=== PATIENT | female | born 1940 | race Caucasian/White ===

== ENCOUNTER 2021-05-11 12:02 | Outpatient (CLI) | payer MEDICARE, OTHER, SELFPAY ==
--- NOTE | 2021-05-11 | ECG_ITS ---
Measurements Intervals [place] Rate: 77 P: 25 PA: 170 QRS: -19 QRSD: 94 T: 4 QT: 361 QTc: 409 Interpretive Statements SINUS RHYTHM VOLTAGE CRITERIA FOR LVH BORDERLINE R WAVE PROGRESSION, ANTERIOR LEADS BORDERLINE T WAVE ABNORMALITY- INFERIOR LEADS BASELINE ARTIFACT- I, II, III, AVR, AVL, AVF BORDERLINE ECG Electronically Signed On 05-11-2021 13:57:48 CDT by Eric England D.O.
[2021-05-11 13:10] LABS: Albumin Level 4.4 g/dL (3.5-5.1); Estimated Glomerular Filt Rate 36
== END 2021-05-11 12:03 | disposition home or self-care (01) ==
PROVIDERS: PCP Internal Medicine; Visit Provider Orthopaedic Surgery
DX: Z01.818 Encounter for other preprocedural examination (principal); M16.12 Unilateral primary osteoarthritis, left hip
CPT/HCPCS: 36415; 82040; 82565; 93005

== ENCOUNTER 2021-05-17 14:17 | Outpatient (CLI) | payer MEDICARE, OTHER, SELFPAY ==
--- NOTE | ~2021-05-17 | CT_ITS ---
EXAMINATION: CT shoulder RT wo con DATE: 05/17/2021 15:53 INDICATION: Displaced fracture of the glenoid cavity and neck of the scapula. TECHNIQUE: High resolution computed tomography (CT) of the right shoulder was performed without intra venous contrast. Additional sagittal and coronal reconstructions were performed. Automated exposure c ontrol and iterative reconstruction technique were employed. The dose-length product was 475.97 mGy-c m. COMPARISON: Right shoulder radiographs dated 05/11/2021 FINDINGS: Osseous Bankart fracture involving the 3:00-7:00 position of the anteroinferior glenoid. The main fra cture fragment measures 2.4 cm in anterosuperior to posterior inferior length and 5 mm in maximal pos terior superior to anteroinferior. The anterosuperior margin of the fracture is displaced 7 mm anteri loni and 8 mm medially with similar fracture gap and incongruity at the articular surface. There are couple additional tiny displaced fragments positioned in a fluid collection deep to the short head of the biceps tendon most likely the subcoracoid recess. No other fractures identified. Mild glenohumeral osteoarthritis as described by mild anterior predominant nonuniform joint space martha rowing and tiny marginal osteophytes about both the glenoid and femoral head. Moderate-sized glenohum eral joint effusion. Small erosion with corticated margins versus old suture anchor tracks along the floor of the intertubercular groove suggesting prior bicipital tenodesis. Mild to moderate acromiocla vicular osteoarthritis. There is additional moderate amount of fluid in the subacromial/subdeltoid bu rsa. Discoid atelectasis in the right middle lobe. No pathologically enlarged lymphadenopathy at the right axilla, right hilum or visualized right side of the mediastinum severe thoracic spondylosis. IMPRESSION: 1. Displaced Bankart fracture of the anteroinferior glenoid as detailed above. 2. Mild glenohumeral and mild to moderate acromioclavicular osteoarthritis. 3. Moderate amount of fluid in the subacromial/subdeltoid bursa which could be related to either burs itis or extension of fluid from the moderate-sized glenohumeral joint effusion through a full-thickne ss rotator cuff tear. Rotator cuff tear is however not diagnostically evaluated on CT and could consi jud MRI for further evaluation as clinically indicated. Reviewed, dictated and finalized at location A. IMPRESSION: 1. Displaced Bankart fracture of the anteroinferior glenoid as detailed above. 2. Mild glenohumeral and mild to moderate acromioclavicular osteoarthritis. 3. Moderate amount of fluid in the subacromial/subdeltoid bursa which could be related to either bursitis or extension of fluid from the moderate-sized glenoh umeral joint effusion through a full-thickness rotator cuff tear. Rotator cuff tear is however not diagnostically evaluated on CT and could consider MRI for f urther evaluation as clinically indicated.
== END 2021-05-17 14:18 | disposition home or self-care (01) ==
LOC: ANHIMG 14:19
PROVIDERS: PCP Internal Medicine; Visit Provider Orthopaedic Surgery
DX: S42.141A Displaced fracture of glenoid cavity of scapula, right shoulder, initial encounter for closed fracture (principal); S42.451A Displaced fracture of lateral condyle of right humerus, initial encounter for closed fracture
CPT/HCPCS: 73200

== ENCOUNTER 2022-01-22 13:41 | Outpatient (CLI) | payer MEDICARE, OTHER, SELFPAY ==
--- NOTE | 2022-01-22 14:11 | ECG_ITS ---
Measurements Intervals [place] Rate: 87 P: 35 AR: 176 QRS: -26 QRSD: 97 T: 4 QT: 358 QTc: 431 Interpretive Statements SINUS RHYTHM LEFT VENTRICULAR HYPERTROPHY CANNOT RULE OUT SEPTAL INFARCT, AGE INDETERMINATE BORDERLINE ST-T WAVE ABNORMALITY- INFERIOR LEADS BASELINE ARTIFACT- I, II, III, AVR, AVL, AVF ABNORMAL ECG Electronically Signed On 01-22-2022 17:04:38 GLUE MILL OPERATOR by Eric England D.O.
[2022-01-22 14:23] LABS: Albumin Level 4.5 g/dL (3.5-5.1); Estimated Glomerular Filt Rate 60
== END 2022-01-22 13:42 | disposition home or self-care (01) ==
PROVIDERS: PCP Internal Medicine; Visit Provider Orthopaedic Surgery
DX: Z01.818 Encounter for other preprocedural examination (principal); M16.12 Unilateral primary osteoarthritis, left hip; I51.7 Cardiomegaly
CPT/HCPCS: 36415; 82040; 82565; 93005

== ENCOUNTER 2022-02-28 13:40 | Outpatient (CLI) | payer MEDICARE, OTHER, SELFPAY ==
[2022-02-28 16:03] LABS: Basophils Absolute Auto 0.1 K/mm3 (0.0-0.1); Basophils Percent Auto 0.7 % (0.2-1.2); Eosinophils Absolute Auto 0.1 K/mm3 (0-0.3); Eosinophils Percent Auto 1.4 % (0-4.4); Hematocrit 40.2 % (37.0-47.0); Hemoglobin 12.9 g/dL (12.0-15.0); Immature Granulocyte Absolute 0.02 K/mm3 (0.00-0.031); Immature Granulocyte Percent A 0.3 % (0-0.5); Lymphocytes Absolute Auto 2.01 K/mm3 (0.9-3.2); Lymphocytes Percent Auto 27.6 % (18.3-44.2); Mean Corpuscular HGB Conc 32.1 g/dl (32-36); Mean Corpuscular Hemoglobin 32.3 pg (26-34); Mean Corpuscular Volume 100.8 fl (80-100); Monocytes Absolute Auto 0.6 K/mm3 (0.1-0.6); Neutrophils Absolute Auto 4.5 K/mm3 (1.3-6.7); Platelet Count Result 307 k/mm3 (150-375); Red Blood Count 3.99 M/mm3 (4.2-5.4); Red Cell Distribution Width 12.5 % (11.5-14.5); White Blood Count 7.3 K/mm3 (4.5-10.0)
[2022-02-28 16:11] LABS: Albumin Level 4.6 g/dL (3.5-5.1); Urine Cotinine NEGATIVE
[2022-02-28 16:13] LABS: Anion Gap 9 mmol/L (8-16); Blood Urea Nitrogen 15 mg/dL (7-17); Carbon Dioxide 25 mmol/L (22-30); Chloride 106 mmol/L (98-107); Estimated Glomerular Filt Rate 53; Glucose 89 mg/dL (65-110); Potassium 4.6 mmol/L (3.4-5.0); Sodium 140 mmol/L (137-145)
[2022-02-28 16:56] LABS: Hemoglobin A1C 5.2 % (<5.7)
== END 2022-02-28 13:41 | disposition home or self-care (01) ==
LOC: ANHSURGERY 13:45
PROVIDERS: Anesthesiology; PCP Internal Medicine; Visit Provider Orthopaedic Surgery
DX: Z01.812 Encounter for preprocedural laboratory examination (principal); M16.12 Unilateral primary osteoarthritis, left hip; Z51.81 Encounter for therapeutic drug level monitoring; Z79.899 Other long term (current) drug therapy
CPT/HCPCS: 80048; 80307; 82040; 83036; 85025; 87081

== ENCOUNTER 2022-03-30 16:24 | Observation (INO) | payer MEDICARE, OTHER, SELFPAY ==
[2022-02-28 14:06] VITALS: BP 158/84; PULSE 85; RESP 16; TEMP 36.7; O2SAT 99; BMI 30.4
--- NOTE | 2022-02-28 14:30 | PC.NURSE ---
Addendum entered by Sasha Olmedo RN 02/28/22 14:54: PATIENT GOING TO DR RUBIO'S OFFICE AFTER THIS VISIT, WILL CHECK OF XERALTO HOLD. PT RELAYS UNDERSTANDING. Original Note: Report to the Outpatient Waiting Room, entrance under the green pavilion located off [facility], at time __6:00AM on date _03/29/22 . OR Time: __7:30AM . - You and your visitor will be asked a series of questions to screen for COVID 19 for your protection. - A mask is required within the hospital. Preoperative COVID Testing Requirements: No COVID Test needed if: (proof is required; if not received patient will have Rapid Test prior to entry) - Patient has received COVID Vaccine at least 14 days prior to procedure date or - Patient has positive COVID test result within last 90 days of surgery date. COVID Test needed if above criteria is not met If not COVID vaccinated a COVID test must be conducted within 72 hours of surgery and patient is asked to isolate self from time of testing until procedure. You will go to the [employer] [facility] [facility] for your COVID testing. The [employer] [facility] site is located at the corner of [address] [facility]. You will only be called if COVID results are positive and your surgeon may reschedule your elective surgery date. Patients may have clear liquids (water, carbonated beverages, clear teas, apple juice) until 3 hours prior to surgery with a maximum of 20 ounces. - No food from midnight until time of surgery - Infants may have breast milk until 4 hours before surgery, infant formula 6 hours prior to surgery. - Children will be allowed to drink immediately following surgery. If applicable, please bring a bottle or sippy cup to assist with drinking. Juice, water, soda, and popsicles are readily available. For infants on formula, please bring formula the day of surgery. Pacifiers are allowed. Take the following medications with a SIP of water the morning of surgery: ____NONE Medications to discontinue per physician __ _HOLD ALL VITAMINS/SUPPLEMENTS 3 DAYS PRE-OP, LAST DOSE 03/25/22. HOLD XERALTO PER DR RUBIO. _ Please no make-up, nail kiswahili, hairspray, perfume, deodorant, or body powder the day of surgery. No jewelry (including any body piercings) or valuables the day of surgery, leave them at home. Please take a shower or bath the night before, or the morning of, surgery with an antibacterial soap. Wear comfortable, loose fitting clothing. Children are encouraged to wear pajamas. - Jewelry must be removed prior to entering the operating room. Rings and piercings that are not removed may be cut off. - The hospital will not accept responsibility for valuables. - Please leave all valuables, including medications, at home the day of surgery. If you are going home after surgery, a licensed stacker driver must drive you home. - NO public transportation without another adult. - We recommend that an adult stay with you for 24 hours following discharge. - We also recommend that you do not drive, make important decision, drink alcoholic beverages, or take any drugs that were not prescribed by your health care provider for at least 24 hours after your discharge time. For Pediatric surgeries, we recommend two adults accompany the child home (only one inside the building at this time). One visitor will be allowed to accompany the patient into the hospital. Patients visitor will be instructed to remain with patient at all times or leave the building. We will allow the visitor to come back to the postoperative area when patient is ready. Follow any additional instructions given to you from your surgeon. Telephone instructions given to __PATIENT and asked if any additional questions and then verbalized understanding. Patient advised to call surgeon office or pre surgery nurse liaison [phone] if any additio
--- NOTE | 2022-03-28 12:51 | WPDANESEPPF ---
Anes - Initial Pre Proc Eval Procedure: Operation Date: 03/29/22 07:30 Proposed Procedures p Left Total Hip Arthroplasty - Layton Grace MD Date/Time: 03/28/22 12:51 Surgeon: Layton Grace MD Pre Op Diagnosis: primary OA left hip Patient Data Age: 81 Gender: F Height: 1.6 m Weight: 78.1 kg Last Vital Signs Temp 36.7 C 02/28/22 14:06 Pulse 85 02/28/22 14:06 Resp 16 02/28/22 14:06 BP 158/84 H 02/28/22 14:06 Pulse Ox 99 02/28/22 14:06 Allergies Allergy/AdvReac Type Severity Reaction Status Date / Time morphine AdvReac Intermediate BRADYCARDIA Verified 03/29/22 06:14 Home Medications Medication Instructions Recorded Confirmed Type rivaroxaban 20 mg tablet 20 mg PO QAM 04/06/21 03/29/22 History simvastatin 20 mg tablet 20 mg PO HS 04/06/21 03/29/22 History acetaminophen 1,000 mg PO Q6H PRN 02/28/22 03/29/22 History calcium carbonate [Caltrate 600] 600 mg PO DAILY 02/28/22 03/29/22 History coenzyme Q10 [Co Q-10] 200 mg PO DAILY 02/28/22 03/29/22 History esomeprazole magnesium [Nexium] 20 mg PO QAM 02/28/22 03/29/22 History famotidine [Pepcid] 20 mg PO HS 02/28/22 03/29/22 History furosemide 20 mg PO 2XW 02/28/22 03/29/22 History loratadine [Claritin] 10 mg PO DAILY 02/28/22 03/29/22 History hugxznlptozx-vfkokpsv-zxqiba 1 tablet PO DAILY 02/28/22 03/29/22 History [Centrum Silver] rivaroxaban 10 mg tablet 10 mg PO DAILY #14 tablet 02/28/22 03/29/22 Rx ECG: Date of Service: 01/22/22 Procedure(s): CA 12 lead EKG Accession Number(s): [id number] cc: ~ Measurements Intervals [place] Rate: 87 P: 35 VA: 176 QRS: -26 QRSD: 97 T: 4 QT: 358 QTc: 431 Interpretive Statements SINUS RHYTHM LEFT VENTRICULAR HYPERTROPHY CANNOT RULE OUT SEPTAL INFARCT, AGE INDETERMINATE BORDERLINE ST-T WAVE ABNORMALITY- INFERIOR LEADS BASELINE ARTIFACT- I, II, III, AVR, AVL, AVF ABNORMAL ECG Electronically Signed On 01-22-2022 17:04:38 PLASTICS WORKER by Eric England D.O. Patient hx anesthesia problems: none Family hx anesthesia problems: none Results Review: All pre-operative results and documents have been reviewed as part of the pre-operative evaluation. [facility] Past Medical History Medical History (Updated 03/28/22 @ 12:53 by Conner Flores MD) Acid reflux DVT (deep venous thrombosis) HTN (hypertension) Hyperlipidemia Primary osteoarthritis of left hip VSD (ventricular septal defect) Surgical History Surgical History H/O: hysterectomy (~2012) History of knee replacement procedure of left knee (~2006) History of knee surgery (~12/22/13) knee condyle and manipulation Social History Social History Smoking packs per day: 1 Smoking cigarettes per day: 20.0 Years smoked: 20 Smoking pack-years: 20.00 Smoking status: Former smoker Tobacco type: cigarettes Smoking end date: 06/01/01 Alcohol intake: current Substance use: never Living arrangements: with family Additional living arrangements comments: [facility] Spiritual care concerns: No Anes - Eval Final PreProcedure Day of Procedure 03/28/22 12:51 Patient weight: obese Heart: regular rate and rhythm Lungs: clear to auscultation and normal air movement Airway: Mallampati scale class II Neurological: alert and oriented Last oral intake: >/= 8 hours ASA classification: III Emergent: no Anesthetic plan: proceed Anesthesia type and monitoring: general ETT Results Review: All pre-operative results and documents have been reviewed as part of the pre-operative evaluation. Informed Consent: The patient's anesth
[2022-03-29] VITALS (14 sets, daily range): BP systolic 107–166; BP diastolic 56–83; PULSE 53–97; RESP 12–20; TEMP 36.1–36.5; O2SAT 96–100
[2022-03-29] MEDS: LACTATED RINGERS 1,000 ML 30 ML IV CONT ×3 (06:35→10:44)
[2022-03-29] MEDS: TRANEXAMIC ACID 1,000MG/ISO100 1,000 MG/100 ML BAG 200 MG IVPB (06:35)
[2022-03-29] MEDS: ACETAMINOPHEN 500 MG TABLET 1000 MG PO (06:37)
--- NOTE | 2022-03-29 07:26 | WPDHPUPDATE1 ---
History and Physical Update Update Date/Time: 03/29/22 07:26 History and Physical has been reviewed, including an updated exam of the patient. There are NO changes in the patient's condition. Risks, benefits, and alternatives have been discussed and questions answered. Patient agrees to proceed with procedure.
[2022-03-29] MEDS: ceFAZolin 2 GM/D5W 50 ML 2 GM/50 ML BAG IVPB ×3 (07:32→22:35)
[2022-03-29] MEDS: fentaNYL CITRATE INJ (*CRX) 100 MCG/2 ML VIAL 25 MCG IV PUSH ×12 (10:20→11:21)
--- NOTE | 2022-03-29 12:03 | PC.NURSE ---
This patient, Sherry Elmore, was admitted to Medical Room 244-. Patient/family oriented to hospital policies and general routines including ID bracelet, bed and alarms, visiting hours, pain management, procedures, bathroom and other care routines, personal items, smoking policy, room service/diet, and visiting hours. Information on how to activate the Rapid Response Team has been discussed. Patient/Family are encouraged to report perceived risks to care and to ask questions if they do not understand what they are told or what they should do.
[2022-03-29] MEDS: oxyCODONE HCL (*CRX) 5 MG TAB IR PO ×2 (13:05→22:35)
[2022-03-29] MEDS: SODIUM CHLORIDE 0.9% IV 1,000 ML 125 ML IV CONT (13:05)
[2022-03-29] MEDS: FUROSEMIDE 20 MG TABLET PO (13:39)
[2022-03-29] MEDS: SENNA/DOCUSATE SODIUM TABLET 2 TAB PO (16:59)
--- NOTE | 2022-03-29 17:34 | W.PM.PROC2 ---
Procedure Note - Detailed Date of Procedure 03/29/22 Pre-op Diagnosis primary OA left hip Post-op Diagnosis Other (1. OA left hip 2. Abductor muscle tear, left hip.) Procedure Performed Left Total Hip Arthroplasty with abductor muscle repair. Surgeon Layton Grace MD Eeg Tech Michelle Carpenter PA-C Anesthesia General Findings Significant split through the central portion of the gluteus medius. Anterior and posterior fibers remained attached. There was a large spur centrally. This was taken partially down and a combination of repair to bone and [id number]-exww repair was performed. Multiple Ethibond sutures were utilized. The repair was quite adames and appeared fairly anatomic. Bone quality was good. Small stature. Implants fit well. She was lengthened slightly to optimize offset for the hip abductors. Description of Procedure The patient was given preoperative antibiotics. A general anesthetic was administered. The patient was carefully placed in the lateral decubitus position on the PEG board. The shoulders and hips were carefully positioned for component and leg length positioning reference. The hip was prepped and draped in the usual sterile fashion. A longitudinal incision was created over the posterior aspect of the greater trochanter. Careful dissection was brought down through the deep fascia with electrocautery. A minimally invasive optimized posterior approach to the hip was performed. The short external rotators and capsule were taken down in an L-shaped capsulotomy. The tissue was tagged for later repair using number 2 high strength suture. The femoral neck was measured and taken in situ. The femoral head was removed. The acetabulum was carefully exposed. The inferior capsule was released. The labrum was resected. The acetabulum was sequentially reamed to one over the intended cup size. The cup was impacted into position with excellent press-fit. Typical anatomic landmarks, including the bony contact points as well as the inferior transverse acetabular ligament were used to confirm cup positioning with preoperative templating. Attention was turned to the femur, which was carefully exposed. The hip was reamed and then broached sequentially. Excellent press-fit was obtained with the broach. The hip was trialed. Measurements were utilized, including the lesser trochanter as well as the center of the femoral head and the tip of the trochanter, and excellent assessment of the offset and leg lengths were confirmed. The real component was impacted into position. Trialing confirmed appropriate leg length and offset with soft tissue balancing as well apparent feel of the leg, both at the knee and the heel. Soft tissues were assessed using the the iliotibial band. Reduction of the posterior capsule and external rotators were also used as a secondary assessment. The hip was copiously irrigated with pulsatile lavage antibiotic solution periodically throughout the procedure. The real components were then assembled and reduced. The hip was stable throughout typical maneuvers, including extension, external rotation to 70 degrees, the position of sleep as well as flexion to 90 degrees with internal rotation past 45 degrees. The shake test confirmed stability without impingement. Osteophytes were removed as necessary. The central abductor was repaired with a few small drill holes and 5. Ethibond placed into the remaining abductor tendon. Medius and minimus were in good condition. The short external rotators and capsule were repaired back to the posterior trochanter through drill holes. The deep fascia was repaired with running number 2 Quill suture, followed by 0 Stratafix suture and 2-0 Stratafix suture in the dermis. Steri-Strips were placed on the skin, followed by a sterile silver occlusive dressing. There were no complications. Meticulous hemostasis was maintained with the AquaMantys device. The patient was brought to the recovery r
[2022-03-29] MEDS: SIMVASTATIN 20 MG TABLET PO (20:37)
[2022-03-29] MEDS: FAMOTIDINE 20 MG TABLET PO (20:37)
[2022-03-30] VITALS (8 sets, daily range): BP systolic 104–155; BP diastolic 53–68; PULSE 63–103; RESP 16–20; TEMP 36–37; O2SAT 94–99
--- NOTE | ~2022-03-30 | XR_ITS ---
EXAMINATION: XR hip LT min 2V DATE: 03/29/2022 10:13 INDICATION: Postoperative evaluation following left total hip arthroplasty TECHNIQUE: Anteroposterior and lateral views of the left hip were obtained. COMPARISON: 01/17/2022 FINDINGS: Interval placement of a noncemented left total hip arthroplasty which appears well seated in near sanford tomic alignment. Small amount of expected subcutaneous gas in the postoperative bed. No fractures id entified. Phleboliths in the pelvis. IMPRESSION: 1. Left total hip arthroplasty, negative for postoperative purposes. Reviewed, dictated and finalized at location B.
[2022-03-30] MEDS: oxyCODONE HCL (*CRX) 5 MG TAB IR PO ×2 (05:42→09:37)
[2022-03-30] MEDS: ceFAZolin 2 GM/D5W 50 ML 2 GM/50 ML BAG IVPB (06:21)
[2022-03-30] MEDS: LORATADINE 10 MG TABLET PO (09:30)
[2022-03-30] MEDS: polyethylene glycoL 3350 17 GM POWD.PACK PO (09:30)
[2022-03-30] MEDS: SENNA/DOCUSATE SODIUM TABLET 2 TAB PO ×2 (09:30→16:44)
[2022-03-30] MEDS: RIVAROXABAN 10 MG TABLET PO (09:31)
[2022-03-30] MEDS: PANTOPRAZOLE 40 MG TABLET PO (09:31)
--- NOTE | 2022-03-30 13:22 | PC.NURSE ---
On 03/30/22, the student, [Dinh Serna], provided care and completed [facility] documentation on this patient. I have reviewed the student's documentation and agree with the findings.
--- NOTE | 2022-03-30 13:27 | WPDANESPN ---
Anes - Prog Note Post-Op Date/Time: 03/30/22 13:27 Cardiovascular status: normal Respiratory status: normal Airway patency: baseline Mental status: baseline Post-Op hydration status: normal Vital Signs: Last Vital Signs Temp 97.4 F L 03/30/22 10:00 Pulse 85 03/30/22 10:00 Resp 18 03/30/22 10:00 BP 116/66 03/30/22 10:00 Pulse Ox 97 03/30/22 10:00 Pain Score (VAS): 2/10 I/O: Intake & Output 03/29/22 03/30/22 03/30/22 23:59 07:59 15:59 Intake Total 490 530 480 Output Total 1200 600 Balance 490 -670 -120 03/29/22 06:25 Antibody Identification Anti-c Antigen Identification c Antigen - NEGATIVE MISHEL, IgG Interpret Not Performed MISHEL, Poly Interpret Neg MISHEL, Complement Interp Not Performed Post-procedural complaints: none Patient Feedback: Patient satisfied with anesthetic care.
[2022-03-30] MEDS: oxyCODONE HCL (*CRX) 5 MG TAB IR 10 MG PO ×2 (13:51→19:33)
--- NOTE | 2022-03-30 14:16 | PM.PNORT ---
Progress Note: A&P Assessment and Plan (1) Status post total hip replacement, left: Code(s): Z96.642 - Presence of left artificial hip joint Status: Acute Assessment and Plan: Postop day 1: Left Total hip arthroplasty. Significant split through the central portion of the gluteus medius. This was repaired with suture. She will need to be partial weight bearing with a walker. Having trouble doing stairs due to repair and weight bearing status. She is also having trouble with pain control. No numbness or tingling. Discharge pending pain control and ability to do stairs with PT. Subjective Subjective Date/Time Seen: 03/30/22 14:16 Patient having trouble with pain control and doing stairs with PT. No numbness or tingling. No CP, SOB, ABD pain. No other complaints. Review of Systems Review of Systems: All systems reviewed & are unremarkable except as noted in HPI and below Exam Narrative: Overweight 81 y/o female. Resting in bed. Uncomfortable. Wearing compression socks bilaterally. Dressing dry and intact with no drainage. Moderate swelling. No ecchymosis. No erythema. No hematoma. Range of motion limited due to pain. Calf nontender. Thigh nontender. Neurologic status intact. No varicosities. Distal pulses palpable. Objective Data Vital Signs Vital Signs: Vital Signs - 24 hr 03/29/22 17:25 03/29/22 19:49 03/30/22 00:19 Temperature 97.3 F L 97.6 F 96.8 F L Pulse Rate 60 70 63 Respiratory Rate 14 20 20 Blood Pressure 131/72 132/70 118/66 Pulse Oximetry 98 99 94 03/30/22 04:53 03/30/22 10:00 Temperature 96.9 F L 97.4 F L Pulse Rate 84 85 Respiratory Rate 20 18 Blood Pressure 155/68 H 116/66 Pulse Oximetry 97 97 Intake/Output Intake/Output: Intake & Output 03/27/22 03/28/22 03/29/22 03/30/22 23:59 23:59 23:59 23:59 Intake Total 1490 1010 Output Total 1800 Balance 1490 -790 Meds/Results Medications: Active Medications Generic Name Dose Route Start Last Admin Trade Name Freq PRN Reason Stop Dose Admin Acetaminophen 1,000 mg 03/29/22 11:23 Acetaminophen 500 Mg Tablet PO Q6H PRN Pain Rated 1-3 Cyclobenzaprine HCl 10 mg 03/29/22 11:23 Cyclobenzaprine Hcl 10 Mg Tablet PO Q8H PRN Spasms Diphenhydramine HCl 25 mg 03/29/22 11:23 Diphenhydramine Hcl Inj 50 Mg/Ml Vial IV PUSH Q6H PRN Itching Famotidine 20 mg 03/29/22 21:00 03/29/22 20:37 Famotidine 20 Mg Tablet PO 20 mg HS ZAIRE Administration Furosemide 20 mg 03/29/22 12:00 03/29/22 13:39 Furosemide 20 Mg Tablet PO 20 mg MoTh@0900 ZAIRE Administration Loratadine 10 mg 03/30/22 09:00 03/30/22 09:30 Loratadine 10 Mg Tablet PO 10 mg DAILY ZAIRE Administration Naloxone HCl 0.1 mg 03/29/22 11:23 Naloxone Hcl 0.4 Mg/Ml Vial IV PUSH Q2M PRN Opiate Reversal Ondansetron HCl 4 mg 03/29/22 11:23 Ondansetron Inj 4 Mg/2 Ml Vial IV PUSH Q4H PRN Nausea And Vomiting Oxycodone HCl 5 mg 03/29/22 11:23 03/30/22 09:37 Oxycodone Hcl (*Crx) 5 Mg Tab Ir PO 5 mg Q4H PRN Administration Pain Rated 4-6 Oxycodone HCl 10 mg 03/29/22 11:23 03/30/22 13:51 Oxycodone Hcl (*Crx) 5 Mg Tab Ir PO 10 mg Q4H PRN Administration Pain Rated 7-10 Pantoprazole Sodium 40 mg 03/30/22 09:00 03/30/22 09:31 Pantoprazole 40 Mg Tablet PO 40 mg QAM ZAIRE Administration Polyethylene Glycol 17 gm 03/30/22 09:00 03/30/22 09:30 Polyethylene Glycol 3350 17 Gm Powd.Pack PO 17 gm QAM ZAIRE Administration Rivaroxaban 10 mg 03/30/22 09:00 03/30/22 09:31 Rivaroxaban 10 Mg Tablet PO 04/12/22 09:01 10 mg DAILY ZAIRE Administration Rivaroxaban 20 mg 04/13/22 09:00 Rivaroxaban 20 Mg Tablet PO QAM [facility] Senna/Docusate Sodium 2 tab 03/29/22 17:00 03/30/22 09:30 Senna/Docusate Sodium Tablet PO 2 tab BID ZAIRE Administration Simvastatin 20 mg 03/29/22 21:00 03/29/22 20:37 Simvastatin
[2022-03-30] MEDS: SIMVASTATIN 20 MG TABLET PO (20:27)
[2022-03-30] MEDS: FAMOTIDINE 20 MG TABLET PO (20:27)
[2022-03-31 03:34] VITALS: O2SAT 95
[2022-03-31 03:49] VITALS: BP 101/46; PULSE 102; RESP 18; TEMP 36.5; O2SAT 91
[2022-03-31 08:25] VITALS: O2SAT 97
[2022-03-31] MEDS: SENNA/DOCUSATE SODIUM TABLET 2 TAB PO (08:28)
[2022-03-31] MEDS: LORATADINE 10 MG TABLET PO (08:29)
[2022-03-31] MEDS: RIVAROXABAN 10 MG TABLET PO (08:30)
[2022-03-31] MEDS: polyethylene glycoL 3350 17 GM POWD.PACK PO (08:30)
[2022-03-31] MEDS: PANTOPRAZOLE 40 MG TABLET PO (08:30)
[2022-03-31] MEDS: oxyCODONE HCL (*CRX) 5 MG TAB IR 10 MG PO (08:42)
[2022-03-31 09:56] VITALS: BP 107/67; PULSE 99; RESP 16; TEMP 36.3; O2SAT 93
[2022-03-31 11:00] VITALS: O2SAT 93
--- NOTE | 2022-03-31 13:13 | PM.DS ---
DS: Admitting Diagnosis Discharge Date 03/31/22 Admitting Diagnosis OA Left hip DS: Discharge Diagnosis Discharge Diagnosis (1) Status post total hip replacement, left: Code(s): Z96.642 - Presence of left artificial hip joint Status: Acute Assessment and Plan: Postop day 2: Left Total hip arthroplasty. Patient tolerated procedure well. Significant split through the central portion of the gluteus medius. This was repaired with suture. She will need to be partial weight bearing with a walker. Pain manageable with pain medications today. She did better with PT today and was able to do 2 stairs. No numbness or tingling. We had a lengthy discussion regarding postoperative wound care, limitations, expectations, and exercises. Patient shows good understanding. Patient has had initial physical therapy and is tolerating it well. DVT prophylaxis: Xarelto 10 mg for 2 weeks the resume 20 mg dose. Short frequent walks. Compression socks for 3 weeks. Pain medication: Percocet. Tylenol. Patient has followup appointment with Dr. Grace in 3 weeks DS: Summary Hospital Course Reason for hospitalization: Total hip arthroplasty Hospital Course: Patient tolerated procedure well. Has had initial PT/OT and made good progress. Status at Discharge Functional status at discharge: uses cane/walker Overall status at discharge: patient is progressing back to baseline Time Spent with Patient Time attestation: Total time spent providing and/or coordinating discharge services: Exam Narrative: Overweight 81 y/o female. Resting comfortably in bed. Wearing compression socks bilaterally. Dressing dry and intact with no drainage. Moderate swelling. No ecchymosis. No erythema. No hematoma. Range of motion limited due to pain. Calf nontender. Thigh nontender. Neurologic status intact. No varicosities. Distal pulses palpable. Discharge Plan Discharge Attending physician on discharge: Layton Grace Discharging Clinician: Michelle Carpenter Anticipated Discharge Date/Time: 03/31/22 13:09 Patient Disposition: Home, Self-Care Activity: may shower Diet: as tolerated and regular Wound Care Instructions: follow printed instructions Discharge Instructions: See instruction sheet Partial weight bearing with walker for 6 weeks. Stand Alone Forms: General Discharge Instructions Follow-up/Referrals: Michelle Carpenter PA [Physician Machine Repairer] - Discharge Medications: New oxycodone-acetaminophen 5-325 mg tablet 1 - 2 tablet PO Q4-6H MDD 6 PRN (Reason: pain) Qty: 30 RF: 0 Continued simvastatin 20 mg tablet 20 mg PO HS RF: 0 Xarelto 10 mg tablet 10 mg PO DAILY Qty: 14 RF: 0 calcium carbonate [Caltrate 600] 600 mg calcium (1,500 mg) Tablet 600 mg PO DAILY RF: 0 famotidine [Pepcid] 20 mg Tablet 20 mg PO HS RF: 0 loratadine [Claritin] 10 mg Tablet 10 mg PO DAILY RF: 0 esomeprazole magnesium [Nexium] 20 mg Capsule,Delayed Release(Dr/Ec) 20 mg PO QAM RF: 0 Centrum Silver Tablet 1 tablet PO DAILY RF: 0 coenzyme Q10 [Co Q-10] 200 mg Capsule 200 mg PO DAILY RF: 0 furosemide 20 mg tablet 20 mg PO 2XW RF: 0 acetaminophen 500 mg Capsule 1,000 mg PO Q6H PRN (Reason: Pain) RF: 0 Held Xarelto 20 mg tablet 20 mg PO QAM RF: 0 Hold Instructions: Resume on 04/13/22. Take 10 mg for 2 weeks then resume 20 mg per day dose. Date of admission: 03/30/22 16:24 Primary Care Provider: Nidhi,Juan Carlos Lindsay Admitting Provider: Layton Grace Attending physician on admission: Layton Grace Condition: Stable
[2022-03-31 13:58] VITALS: BP 107/58; PULSE 91; RESP 20; TEMP 37; O2SAT 95
[2022-03-31] MEDS: oxyCODONE HCL (*CRX) 5 MG TAB IR PO (15:12)
== END 2022-03-31 16:00 | disposition home or self-care (01) ==
LOC: ANHSURGERY 16:34 → ANH2MED 16:34
PROVIDERS: Admitting Provider Orthopaedic Surgery; PCP Internal Medicine; Visit Provider Orthopaedic Surgery
PROC: (CPT 27130; principal; 2022-03-29 07:30)
DX: M16.12 Unilateral primary osteoarthritis, left hip (principal); S76.012A Strain of muscle, fascia and tendon of left hip, initial encounter; X58.XXXA Exposure to other specified factors, initial encounter; I10 Essential (primary) hypertension; E78.5 Hyperlipidemia, unspecified; Q21.0 Ventricular septal defect; K21.9 Gastro-esophageal reflux disease without esophagitis; Z86.718 Personal history of other venous thrombosis and embolism; Z79.01 Long term (current) use of anticoagulants; Z87.891 Personal history of nicotine dependence; E66.9 Obesity, unspecified; Z68.30 Body mass index [BMI] 30.0-30.9, adult
CPT/HCPCS: 27130; 27299; 36415; 73502; 86850; 86880; 86900; 86901; 86902; 97110; 97116; 97161; 97165; 97530; 97535; A9270; C1776; G0378; J0131; J0171; J0690; J1100; J1885; J2270; J2405; J2704; J2710; J2795; J3010; J7030; J7120